=== PATIENT | male | born 1985 | race Hispanic/Latino ===

== ENCOUNTER 2016-09-22 08:39 | Day surgery (SDC) | payer BC ==
--- NOTE | 2016-09-22 09:32 | OR ---
Anesthesia Pre Procedure Eval Date of Service: 09/22/16 Pre Procedure Evaluation: Last Vital Signs Temp 36.6 C 09/22/16 09:10 Pulse 77 09/22/16 09:10 Resp 16 09/22/16 09:10 BP 119/76 09/22/16 09:10 Pulse Ox 98 09/22/16 09:10 Anesthesia Pre Procedure Evaluation DATE: 09/22/2016. TIME: 924. INDICATIONS: Cervical radiculopathy at C5. PAST MEDICAL HISTORY: This is a 31-year-old male with a two-week history of neck and right shoulder pain. EXAM: MRI report and films were reviewed. Pain is 5-6 on pain scale at present. The patient's medications were also reviewed. ASSESSMENT OF MEDICAL STATUS: O.K. to proceed with DELMA. PLANNED PROCEDURE: Fluoroscopic guided epidural steroid injection C56-6. Home Medications: HOME MEDICATIONS Calcium Carb&Cit/Mag12/Vit D3 [Calcium 500 mg Tablet] 1 each PO DAILY 09/21/16 [ Last Taken Unknown] Cinnamon Bark [Cinnamon] 500 mg PO DAILY 09/21/16 [Last Taken Unknown] Garlic [Odor Free Garlic] 100 mg PO DAILY 09/21/16 [Last Taken Unknown] Ibuprofen [Motrin] 800 mg PO TID PRN 09/21/16 [Last Taken Unknown] Vitamin B Complex 1 each PO DAILY 09/21/16 [Last Taken Unknown]
[2016-09-22] MEDS ORDERED: IOPAMIDOL 20 ML VIAL IJ ONE (10:00)
[2016-09-22] MEDS ORDERED: LIDOCAINE HCL/PF 5 ML VIAL IJ ONE (10:00)
[2016-09-22] MEDS ORDERED: DEXAMETHASONE SOD PHOSPHATE 10 MG/ML VIAL IJ ONE (10:00)
--- NOTE | 2016-09-22 10:13 | OR ---
Anesthesia Procedure Note - Anesthesia Procedure Note Date of Service: 09/22/16 Narrative: Vital Signs - Last Taken Temp 36.6 C 09/22/16 09:10 Pulse 75 09/22/16 09:50 Resp 18 09/22/16 09:50 BP 128/79 09/22/16 09:50 Pulse Ox 100 09/22/16 09:50 O2 Oxygen Delivery Method Room Air 09/22/16 10:08ANESTHESIA PROCEDURE NOTE Date of Procedure: 09/22/2016. Time of procedure: 949. Performed by: Sim Damon CRNA Release Of Information Specialist: None. Preprocedure diagnosis: Cervical radiculopathy at C-5. Post procedure diagnosis: Same. Procedure: Fluoroscopic guided epidural Steroid Injection C5-6. Indications: This is a 31-year-old male with a two-week history of neck and right shoulder pain. Potential risks and benefits of the procedure were discussed with the patient and consent was obtained. Findings: See below. Details of the procedure: The patient was brought back to operating room #3. The patient was then placed in the prone position to comfort. DuraPrep was applied to the patient's back. Patient was then draped in sterile fashion. Lidocaine 1% was infiltrated to the skin and subcutaneous tissues at the level of theC5-6 interspace using fluoroscopic guidance. The epidural space was identified using a 20-gauge Tuohy needle with [id number] technique. 1 mL of Isovue contrast was then injected after negative aspiration for blood and CSF. The epidural space was outlined in the AP and lateral views. Preservative free Decadron 10mg + 3 mL of 1% preservative-free lidocaine was administered to the epidural space after negative aspiration for blood and CSF. The Tuohy needle was removed intact. A Band-Aid was applied to the patient's back. The patient was then placed in a supine position for 5 minutes before returning to the ambulatory surgical unit. Total fluoroscopy time: 26.6 seconds. Cumulative dose: 13.36 mGy. EBL: Minimal. Fluids: N/A. Specimen: N/A. Post procedure condition: The patient tolerated the procedure well. No complications were noted. No motor weaknesses or paresthesias were noted upon discharge. Thank you for this consultation. Sim Damon CRNA
[2016-09-22 13:25] VITALS: BP 116/77
== END 2016-09-22 08:40 | disposition home or self-care (01) ==
LOC: AMB 08:39
PROVIDERS: ATTEND Physician Assistant
PROC: 3E0S3BZ Introduction of Anesthetic Agent into Epidural Space, Percutaneous Approach (ICD-10-PCS; 2016-09-22)
PROC: 3E0S33Z Introduction of Anti-inflammatory into Epidural Space, Percutaneous Approach (ICD-10-PCS; principal; 2016-09-22 09:30)
DX: M54.12 Radiculopathy, cervical region (principal)

== ENCOUNTER 2017-09-16 15:08 | Emergency (ER) | payer BC ==
[2017-09-16] MEDS ORDERED: KETOROLAC TROMETHAMINE 60 MG/2 ML VIAL IM ONE ×2 (15:28→15:32)
--- NOTE | 2017-09-16 15:41 | ERNOTE ---
Back Pain ER HPI Time Seen by Provider: 09/16/17 15:19 Immunizations: IMMUNIZATION HX Immunizations Up to Date Yes History of Influenza Vaccine No Hx Pneumococcal Vaccination No Allergies/Adverse Reactions: Allergies No Known Allergies Allergy (Verified 09/16/17 15:13) Home Medications: HOME MEDICATIONS HYDROcodone/ACETAMINOPHEN [Cantrall 5-325] 1 each PO Q4H PRN #10 tablet 09/16/17 [ Last Taken Unknown] Narrative: Patient had two lipomas excised from his lower back on 09/04. He was released back to work two days later. His wound on the right has healed well but the area on the left has increased in pain again over the last couple of days with pain radiating into his left buttock. Date (Duration): 09/04/17 Timing: Reports: getting worse Quality/Severity: Reports: moderate Location of pain: Reports: lower back, radiating to lf thigh/leg Associated Symptoms: Denies: constipation/incontinence, nausea/vomiting, problems urinating, difficulty walking, lightheadedness, numbess/weakness in legs Prior Treament: Reports: recently seen Review of Systems - Review of Systems Constitutional: Present: chills. Absent: recent illness, fever ENT: Absent: nose congestion Respiratory: Absent: shortness of breath, other Gastrointestinal/Abdominal: Absent: nausea, abdominal pain Genitourinary: Present: no symptoms reported Musculoskeletal: Present: See HPI Neurological: Absent: weakness, numbness - Patient's Past Medical History Patient History - Medical: Other Patient History - Cardiac/Respiratory: No pertinent hx Patient History - Cancer: No Hx of Cancer Patient History - Surgical Procedures: Back Surgery, T & A, Other Patient History - Other: None - Family History Mother Family History - Medical: Hypothyroidism Family History - Cardiac/Respiratory: No pertinent hx Family History - Cancer: No pertinent family hx Father Family History - Medical: , No pertinent hx Family History - Cardiac/Respiratory: CHF Family History - Cancer: No pertinent family hx - Social History Living Situations: home Abuse History: No History of abuse Psych History: Hx of Anxiety, Hx of Depression, Current tx/ever been on anti- depressants or anti-anxiety meds Smoking Status: Current every day smoker Have you smoked in the past 12 months: Yes Do you dip or chew tobacco: No Alcohol Use: occasionally Drug Use: none - Immunizations Immunizations Up to Date: Yes Hx Pneumococcal Vaccination: No History of Influenza Vaccine: No Physical Exam - Physical Exam General Appearance: Present: wd/wn, alert, no apparent distress Respiratory: Present: no respiratory distress Back Exam: Present: no vertebral tenderness, other - right lower back incision healing well, left sided incision: swollen, indurated, tender, slightly increased skin temperature, minimal erythema on lateral side of incision Extremity Exam: Present: normal inspection, non-tender, normal range of motion, other - no pain on straight leg raise Neurological Exam: Present: alert, oriented, normal mood/affect, no motor/ sensory deficits DTR: N=norm/NB=norm/brisk/A=abs/DD=dull/dimin/HC=hyperactive: Knee (R): Normal, Knee (L): Normal Skin Exam: Present: normal color, warm/dry ED Progress - Results and Orders Patient's Lab Results:: I have reviewed the patient's lab results. - Vital Signs Patient's Vital Signs:: I have reviewed the patient's vital signs. Vital Signs: Vital Signs 09/16/17 15:13 Temperature 37.3 C Pulse Rate 91 Respiratory 16 Rate Blood Pressure 116/73 O2 Sat by Pulse 99 Oximetry - CT/Ultrasound CT/Ultrasound Narrative: ultrasound wound lower back: complex fluid collection more than expected for seroma concerning for possible abscess (see report for details) - Progress/Reassessment Chief Complaint: Back Pain Progress Note-Subjective: 09/16/17 16:[address] Landeros, as increased swelling compared to prior office visit and increased skin temp and WBC aspiration seems reasonable 09/16/17 17:10 wound aspiration: consent was obtained and put on the chart skin cleaned with betaiodine, in steril fashion skin numbed with1% lidocaine using a 16gauge needle serosangiounes fluid was aspirated from the swelling below the incision no significant bleeding patient tolerated procedure well 09/16/17 18:35 discussed results with patient and family Departure Clinical Impression: Seroma - Departure Disposition: Home self-care Condition: Good Instructions: Seroma Additional Instructions: call Dr Landeros's office Sunday for a follow up appointment Referrals: Sarah Landeros MD [Staff Physician] - Prescriptions: HYDROcodone/ACETAMINOPHEN [Cantrall 5-325] 1 each PO Q4H PRN #10 tablet PRN Reason: Pain
[2017-09-16 15:42] LABS: Hematocrit 40.1 % (42.0-52.0); Hemoglobin 14.1 gm/dL (13.5-18.0); Mean Cell Volume 93.3 fl (78-100); Mean Corpuscular Hemoglobin 32.8 pg (27-31); Mean Corpuscular Hgb Conc 35.2 g/dl (32-36); Mean Platelet Volume 9.4 fl (6.0-9.5); Neutrophil # 13.9 K/mm3 (1.3-6.0); Neutrophil % 78.4 % (42-75.0); Platelet Count 339 K/mm3 (150-450); Red Cell Distribution Width 12.3 % (11.5-14.0); White Blood Count 17.8 K/mm3 (4.0-10.5)
[2017-09-16 15:55] LABS: Albumin * 4.1 gm/dl (3.4-5.0); Anion Gap 12.1 mmol/L (6.8-13.8); BUN/Creatinine Ratio 21.1 (9.0-21.6); Bilirubin, Total 0.3 mg/dL (0.0-1.1); CRP 0.3 mg/dL (0.0-0.9); Ca. Corrected For Albumin 7.9 mg/dL (8.4-10.2); Calcium * 8.3 mg/dL (7.9-10.9); Carbon Dioxide 27.4 mmol/L (24-32.6); Potassium 3.5 mmol/L (3.4-4.6); Total Protein 6.7 gm/dL (6.2-8.2)
[2017-09-16] MEDS ORDERED: HYDROcodone/ACETAMINOPHEN 1 EACH TABLET PO ONE ×2 (17:13→18:35)
[2017-09-16] MEDS ORDERED: HYDROcodone/ACETAMINOPHEN 1 EACH TABLET ONE ×2 (17:17→18:36)
[2017-09-16 18:47] VITALS: BP 118/75
== END 2017-09-16 18:46 | disposition home or self-care (01) ==
LOC: ER 15:08
PROC: 0H96XZX Drainage of Back Skin, External Approach, Diagnostic (ICD-10-PCS; principal; 2017-09-16)
DX: L76.33 Postprocedural seroma of skin and subcutaneous tissue following a dermatologic procedure (principal); F17.200 Nicotine dependence, unspecified, uncomplicated

== ENCOUNTER 2017-09-21 12:45 | Day surgery (SDC) | payer BC ==
[2017-09-21] MEDS ORDERED: RINGER'S SOLUTION,LACTATED 1,000 ML IV PRN ×2 (12:52→14:14)
[2017-09-21] MEDS ORDERED: ceFAZolin SODIUM 2 GM in DEXTROSE 5 % IN WATER 50 ML IV PRN ×2 (12:53)
[2017-09-21] MEDS ORDERED: RINGER'S SOLUTION,LACTATED 1,000 ML IV ONE (13:15)
[2017-09-21] MEDS ORDERED: BUPIVACAINE HCL/EPINEPHRINE 50 ML VIAL IJ ONE (13:45)
[2017-09-21] MEDS ORDERED: BACITRACIN 50,000 UNITS VIAL IR ONE (13:55)
[2017-09-21] MEDS ORDERED: HYDROcodone/ACETAMINOPHEN 1 EACH TABLET PO ONE (15:00)
[2017-09-21 15:07] VITALS: BP 120/61
--- NOTE | 2017-09-21 19:38 | OR ---
Operative Report - Dictated Report Narrative: OPERATIVE REPORT DATE OF OPERATION: 09/21/2017 PREOPERATIVE DIAGNOSIS: Hematoma left buttock POSTOPERATIVE DIAGNOSIS: Infected hematoma left buttock OPERATION: Incision and drainage with packing of infected hematoma left buttock SURGEON: Sarah Landeros MD ANESTHESIA: MAC/local Travis Zamora CRNA INDICATIONS FOR PROCEDURE: The patient is a 32-year-old male who underwent excision of bilateral lower lumbar lipomas performed by Dr. Britt on 09/04/2017. He has had increased pain and redness of the incision on the left side. He presented to the emergency room where needle aspiration revealed staph and old blood. He was started on Augmentin po BID. He has subsequently developed drainage of old blood from the incision. FINDINGS: Infected hematoma at the surgical site on the left buttock NARRATIVE OF PROCEDURE: Patient was identified preoperatively and the surgical site was marked. Prior to the administration of anesthetic a multidisciplinary timeout was observed. The patient was placed prone and after the administration of intravenous sedation the area around the incision on the left side was prepped with Betadine solution and isolated with 4 sterile towels. The remainder the patient was covered with a sterile disposable drape. The area was infiltrated with 0.25% Marcaine with epinephrine. A hemostat was used to probe one of the open areas in the incision revealing a large cavity filled with infected blood. The wound was then opened bluntly and the subcuticular suture removed. A sample of the cavity contents was submitted for culture and sensitivity. The cavity was then suctioned clean and inspected. There was shaggy ecchymotic subcutaneous tissue however no active bleeding was seen. The wound was then irrigated with 1 L of bacitracin-containing saline. Nonviable subcutaneous tissue was trimmed with scissors. The cavity appeared hemostatic. The cavity was packed with 2 inch iodoform gauze and the wound dressed with a large Mepilex border and Medipore tape. The operative procedure was terminated at this point. The patient tolerated the anesthetic and procedure well without complication. There was no measurable blood loss. All counts were correct. The patient was transferred back to the ambulatory surgery area awake and in stable condition. The patient remained stable throughout appeared postoperative observation. His pain was managed with po hydrocodone/acetaminophen. He was up without assistance and tolerated regular diet. He was discharged home with instructions to keep the current dressing dry and intact. He will be NPO for return to the OR tomorrow for either packing change or wound VAC application if one is available. Reviewed and electronically signed
== END 2017-09-21 12:46 | disposition home or self-care (01) ==
LOC: AMB 12:45
PROVIDERS: ATTEND Surgery
PROC: 0J990ZZ Drainage of Buttock Subcutaneous Tissue and Fascia, Open Approach (ICD-10-PCS; principal; 2017-09-21)
DX: L76.32 Postprocedural hematoma of skin and subcutaneous tissue following other procedure (principal); A49.01 Methicillin susceptible Staphylococcus aureus infection, unspecified site; F17.290 Nicotine dependence, other tobacco product, uncomplicated

== ENCOUNTER 2017-09-22 06:18 | Day surgery (SDC) | payer BC ==
[~2017-09-22 06:18] MED LIST: RINGER'S SOLUTION,LACTATED 1,000 ML IV PRN
[2017-09-22] MEDS ORDERED: RINGER'S SOLUTION,LACTATED 1,000 ML IV ONE (07:50)
[2017-09-22] MEDS ORDERED: BUPIVACAINE HCL/EPINEPHRINE 50 ML VIAL IJ ONE (08:05)
[2017-09-22] MEDS ORDERED: RINGER'S SOLUTION,LACTATED 1,000 ML IV PRN (08:23)
[2017-09-22] MEDS ORDERED: HYDROcodone/ACETAMINOPHEN 1 EACH TABLET PO ONE (09:30)
[2017-09-22 10:05] VITALS: BP 128/86
--- NOTE | 2017-09-22 15:58 | OR ---
Operative Report - Dictated Report Narrative: OPERATIVE REPORT DATE OF OPERATION: 09/22/2017 PREOPERATIVE DIAGNOSIS: Infected postop hematoma left buttock POSTOPERATIVE DIAGNOSIS: Same (6 cm long x 2 cm wide x 4.5 cm deep) OPERATION: Packing change and irrigation SURGEON: Sarah Landeros MD ANESTHESIA: MAC/local Travis Zamora CRNA INDICATIONS FOR PROCEDURE: The patient is a 32-year-old male who underwent excision of bilateral lumbosacral lipomas. He developed a postop hematoma on the left side which has become infected. The wound was was incised and drained yesterday with placement of iodoform gauze packing. He is on Augmentin twice daily. He returns today for wound check and packing change FINDINGS: The cavity with no extension NARRATIVE OF PROCEDURE: The patient was identified preoperatively, the surgical site was identified, and prior to the administration of anesthetic a multidisciplinary timeout was observed. With the patient in the prone position and after the administration of intravenous sedation the previous dressing and packing were removed and the area prepped with Betadine. The area was isolated with sterile towels and the remainder the patient was covered with sterile disposable drapes. The interior of the cavity was inspected. There was no extension and there was evidence of beginning granulation tissue. The cavity was irrigated with 1 L of saline. The wound was packed with 2 inch iodoform gauze with a Mepilex border and Medipore tape dressing. 0.25% Marcaine with epinephrine was used for local anesthetic infiltration. There was no blood loss. There was no specimen submitted. The patient tolerated the anesthetic procedure well without complication he was transferred back to the floor awake and in stable condition. The patient remained stable throughout a period of postoperative observation. His discomfort was controlled. He was up independently and tolerated a regular diet. He was discharged home with instructions to keep the current dressing dry and reinforced as needed. He is to avoid hazardous activity today but may return to normal activity tomorrow and advance diet as tolerated. He has medication at home for pain and phone numbers to call if needed for questions or concerns. He was instructed to be NPO after 7 AM on 09/24/2017 and consent was obtained for packing change and possible wound VAC application through ambulatory surgery on 09/24/2017. Reviewed and electronically signed
== END 2017-09-22 06:19 | disposition home or self-care (01) ==
LOC: AMB 06:18
PROVIDERS: ATTEND Surgery
PROC: 2W0 Placement, Anatomical Regions, Change (ICD-10-PCS; principal; 2017-09-22)
DX: L76.32 Postprocedural hematoma of skin and subcutaneous tissue following other procedure (principal); F17.290 Nicotine dependence, other tobacco product, uncomplicated

== ENCOUNTER 2017-09-24 13:27 | Day surgery (SDC) | payer BC ==
[2017-09-24] MEDS ORDERED: RINGER'S SOLUTION,LACTATED 1,000 ML IV PRN ×2 (13:43→14:38)
[2017-09-24] MEDS ORDERED: BUPIVACAINE HCL/EPINEPHRINE 50 ML VIAL IJ ONE (14:20)
[2017-09-24] MEDS: MORPHINE SULFATE 2 MG/ML DISP.SYRIN IV PRN ×2 (14:57→15:14)
[2017-09-24] MEDS ORDERED: HYDROcodone/ACETAMINOPHEN 1 EACH TABLET PO ONE (15:30)
[2017-09-25 08:32] VITALS: BP 103/70
--- NOTE | 2017-09-26 14:40 | OR ---
Operative Report - Dictated Report Narrative: OPERATIVE REPORT DATE OF OPERATION: 09/24/2017 PREOPERATIVE DIAGNOSIS: Infected hematoma left buttock POSTOPERATIVE DIAGNOSIS: Infected hematoma left buttock (6 cm x 2 cm x 4.5 cm) OPERATION: Wound irrigation with placement of wound VAC SURGEON: Sarah Landeros MD ANESTHESIA: MAC/local Sim Damon CRNA INDICATIONS FOR PROCEDURE: The patient is a 32-year-old male who underwent excision of bilateral lower lumbar lipomas performed on 09/04/[address] Honeycutt. He has developed an infected hematoma on the left side which is been managed by incision and drainage and serial packings. The wound is now clean and ready for application of a wound VAC. FINDINGS: Clean granulating cavity 6 cm x 2 cm x 4.5 cm. NARRATIVE OF PROCEDURE: The patient was identified preoperatively, the surgical site was marked, and prior to the administration of anesthetic a multidisciplinary timeout was observed. The patient was placed in the prone position and intravenous sedation administered. The packing was removed from the wound and the area was prepped with Betadine solution and isolated with sterile towels. 0.25% Marcaine with epinephrine was used for local anesthetic infiltration. The base of the wound was irrigated with saline. There was beginning granulation with no evidence of extension. [place]illa wound VAC foam was then fashioned and placed in the wound, covered with plastic, and a wound VAC applied. There was a good seal. The procedure was terminated at this point. The patient tolerated the anesthetic and procedure well without complication. There was no measurable blood loss. No specimens were submitted. All counts were correct. The patient was transferred back to the ambulatory surgery awake and in stable condition. The patient remained stable throughout a period of postoperative observation his pain was controlled with hydrocodone. He was discharged home with instructions on wound VAC care and a follow-up appointment has been made in the wound center for 09/26/2017. Reviewed and electronically signed
== END 2017-09-24 13:28 | disposition home or self-care (01) ==
LOC: AMB 13:27
PROVIDERS: ATTEND Surgery
PROC: 2W25X4Z Dressing of Back using Bandage (ICD-10-PCS; principal; 2017-09-24)
DX: L76.31 Postprocedural hematoma of skin and subcutaneous tissue following a dermatologic procedure (principal); F17.290 Nicotine dependence, other tobacco product, uncomplicated; Z68.28 Body mass index [BMI] 28.0-28.9, adult